=== PATIENT | male | born 1980 | race Caucasian/White ===

== ENCOUNTER 2021-03-23 01:36 | Emergency (ER) | payer SELFPAY ==
[~2021-03-23] VITALS: Ht 170.2 cm; Wt 68.0 kg
[2021-03-23 01:45] VITALS: BP_SYST 137
[2021-03-23] MEDS ORDERED: IBUPROFEN 800 MG TABLET PO ONE (02:15)
[2021-03-23] MEDS ORDERED: IBUPROFEN 800 MG TABLET ONE (02:18)
[2021-03-23 02:35] VITALS: BP_SYST 137
== END 2021-03-23 02:35 ==
LOC: SED 01:36
DX: S00.83XA Contusion of other part of head, initial encounter (principal); F12.90 Cannabis use, unspecified, uncomplicated; Y35.813A Legal intervention involving manhandling, suspect injured, initial encounter; Y93.89 Activity, other specified; Y92.89 Other specified places as the place of occurrence of the external cause; Y99.8 Other external cause status
CPT/HCPCS: 99283